=== PATIENT | male | born 1955 | race Two or more races ===

== ENCOUNTER 2019-06-15 08:00 | Day surgery (SDC) | payer OTHER | END 2019-06-15 13:00 | disposition home or self-care (01) | LOC: AMB-ENDOS 08:00 | DX: D12.3 Benign neoplasm of transverse colon (principal); K57.30 Diverticulosis of large intestine without perforation or abscess without bleeding ==

== ENCOUNTER 2020-08-03 11:45 | Inpatient (IN) | payer OTHER ==
[~2020-08-03] VITALS: Ht 165.1 cm; Wt 93.9 kg
[2020-08-03] MEDS ORDERED: VASOTEC20 M1 PO (14:57)
[2020-08-08] MEDS ORDERED: GEMFIBROZIL600 MG (11:55)
[2020-08-12] MEDS ORDERED: ULTRACET PO (14:46)
[2020-08-12] MEDS ORDERED: PRILOSEC OTC20 MG PO (14:46)
== END 2020-08-12 16:41 | disposition home or self-care (01) | DRG 333 ==
LOC: SURH 08-08 07:00 → O/R 08-08 07:18 → SURH 08-08 07:18
PROVIDERS: ADMIT Surgery; ATTEND Surgery
PROC: 07BD3ZX Excision of Aortic Lymphatic, Percutaneous Approach, Diagnostic (ICD-10-PCS; 2020-08-08)
PROC: 0DTU0ZZ Resection of Omentum, Open Approach (ICD-10-PCS; 2020-08-08)
PROC: 3E0F7SF Introduction of Other Gas into Respiratory Tract, Via Natural or Artificial Opening (ICD-10-PCS; 2020-08-08)
PROC: 3E0F7GC Introduction of Other Therapeutic Substance into Respiratory Tract, Via Natural or Artificial Opening (ICD-10-PCS; 2020-08-08)
PROC: 0DBP0ZZ Excision of Rectum, Open Approach (ICD-10-PCS; principal; 2020-08-08 07:00)
DX: D12.3 Benign neoplasm of transverse colon (principal); K92.1 Melena; J98.11 Atelectasis; R59.0 Localized enlarged lymph nodes; Z20.822 Contact with and (suspected) exposure to COVID-19

== ENCOUNTER 2022-07-27 12:54 | Emergency (ER) | payer OTHER ==
[~2022-07-27] VITALS: Ht 165.1 cm; Wt 86.2 kg
[~2022-07-27 12:54] MED LIST: GEMFIBROZIL600 MG; PRILOSEC OTC20 MG PO; ULTRACET PO; VASOTEC20 M1 PO
== END 2022-07-27 15:19 | disposition home or self-care (01) ==
LOC: ER 12:54
DX: K29.70 Gastritis, unspecified, without bleeding (principal)